=== PATIENT | female | born 1940 | race Caucasian/White ===

== ENCOUNTER → 2020-06-10 | Outpatient (CLI) | payer MEDICARE | LOC: CT 14:00 | DX: R79.89 Other specified abnormal findings of blood chemistry (principal); R06.02 Shortness of breath; D68.51 Activated protein C resistance | CPT/HCPCS: Q9967 ==

== ENCOUNTER → 2020-10-14 | Outpatient (CLI) | payer MEDICARE | LOC: LAB 10:49 | DX: D89.9 Disorder involving the immune mechanism, unspecified (principal); M79.642 Pain in left hand; M79.641 Pain in right hand; R76.8 Other specified abnormal immunological findings in serum; Z86.010 Personal history of colon polyps; M19.042 Primary osteoarthritis, left hand; M19.041 Primary osteoarthritis, right hand | CPT/HCPCS: 36415; 73130; 82550; 83520; 85652; 86140; 86200 ==

== ENCOUNTER → 2021-07-08 | Outpatient (CLI) | payer MEDICARE | LOC: EXRD 15:20 | DX: M79.662 Pain in left lower leg (principal); M79.652 Pain in left thigh; M54.32 Sciatica, left side; I73.9 Peripheral vascular disease, unspecified; M54.50 Low back pain, unspecified; M43.16 Spondylolisthesis, lumbar region | CPT/HCPCS: 72100 ==

== ENCOUNTER → 2021-07-19 | Outpatient (CLI) | payer MEDICARE | LOC: EXRD 09:53 | DX: I20.9 Angina pectoris, unspecified (principal); I73.9 Peripheral vascular disease, unspecified | CPT/HCPCS: 93925; 93970 ==

== ENCOUNTER → 2021-09-01 | Outpatient (CLI) | payer MEDICARE | LOC: EXRD 14:39 | DX: M54.2 Cervicalgia (principal); M47.812 Spondylosis without myelopathy or radiculopathy, cervical region | CPT/HCPCS: 72040 ==

== ENCOUNTER → 2021-09-21 | Outpatient (CLI) | payer MEDICARE | LOC: KOH-I 12:47 | DX: M50.31 Other cervical disc degeneration, high cervical region (principal); M25.78 Osteophyte, vertebrae; M48.02 Spinal stenosis, cervical region; R90.89 Other abnormal findings on diagnostic imaging of central nervous system | CPT/HCPCS: 72141 ==

== ENCOUNTER → 2021-10-29 | Outpatient (CLI) | payer MEDICARE | LOC: KOH-I 08:12 | DX: M51.16 Intervertebral disc disorders with radiculopathy, lumbar region (principal); M51.17 Intervertebral disc disorders with radiculopathy, lumbosacral region; M47.26 Other spondylosis with radiculopathy, lumbar region | CPT/HCPCS: 72100; 72148 ==

== ENCOUNTER → 2021-11-25 | Outpatient (CLI) | payer MEDICARE ==
[2021-11-26 09:14] LABS: CREATININE, URINE 91.5 mg/dL (Not Estab.); MICROALB/CREAT RATIO <3 (0-29)
== END ==
LOC: LAB 13:03
PROVIDERS: Internal Medicine Nephrology
DX: N18.9 Chronic kidney disease, unspecified (principal)
CPT/HCPCS: 36415; 80053; 81001; 82043; 82570; 84156

== ENCOUNTER → 2021-12-08 | Outpatient (CLI) | payer MEDICARE | LOC: EXRD 11-25 13:30 | DX: N18.9 Chronic kidney disease, unspecified (principal); N26.1 Atrophy of kidney (terminal) | CPT/HCPCS: 76775 ==

== ENCOUNTER → 2022-01-03 | Outpatient (CLI) | payer MEDICARE | LOC: HEART 5 09:18 | DX: R06.02 Shortness of breath (principal) | CPT/HCPCS: 94060; 94729 ==

== ENCOUNTER → 2022-01-17 | Outpatient (CLI) | payer MEDICARE | LOC: ECHO 09:00 | DX: R68.89 Other general symptoms and signs (principal); R60.0 Localized edema; R06.02 Shortness of breath; I10 Essential (primary) hypertension; I35.1 Nonrheumatic aortic (valve) insufficiency | CPT/HCPCS: ECHO; 93306 ==

== ENCOUNTER → 2022-01-18 | Outpatient (CLI) | payer MEDICARE ==
[~2022-01-18] VITALS: Ht 154.9 cm; Wt 62.6 kg
== END ==
LOC: OPSV 11:00
DX: N18.30 Chronic kidney disease, stage 3 unspecified (principal); M85.80 Other specified disorders of bone density and structure, unspecified site
CPT/HCPCS: 96361; 96365; J3489

== ENCOUNTER → 2022-02-15 | Outpatient (CLI) | payer MEDICARE | LOC: HEART 5 13:37 | DX: J45.40 Moderate persistent asthma, uncomplicated (principal) | CPT/HCPCS: 94060; 94729; 95012 ==